=== PATIENT | male | born 1990 | race Caucasian/White ===

== ENCOUNTER 2017-08-29 14:56 | Emergency (ER) | payer SELFPAY ==
--- NOTE | 2017-08-29 14:58 | ER Report ---
History and Physical Time Seen By MD: 14:57 HPI/ROS CHIEF COMPLAINT: fever HISTORY OF PRESENT ILLNESS: Pt started on Wednesday with cough, sneezing, nausea and runny nose. Pt a few hours ago started with fever and abdominal pain in addition to the other symptoms. Pt states he has chills and can not get warm. PT just came back from [place] and is not sure if he was in contact with anyone sick. no diarrhea. PT denies any medical hx accept for a bruised r hand from a fall a week ago. REVIEW OF SYSTEMS: Constitutional: + fever, + chills. Eyes: No discharge. ENT: No sore throat. + sneezing, + runny nose Cardiovascular: No chest pain, no palpitations. Respiratory: + cough, + shortness of breath. Gastrointestinal: + abdominal pain, no vomiting. Genitourinary: No hematuria. Musculoskeletal: No back pain. Skin: No rashes. Neurological: No headache. Allergies: Coded Allergies: No Known Drug Allergies (Unverified , 08/29/17) Home Meds Active Scripts Oseltamivir Phosphate (TAMIFLU) 75 Mg Cap, 75 MG PO BID, #10 CAP Prov:BARBARA MCKEE V DO 08/29/17 Past Medical/Surgical History pmhx: bruised thumb/sprain hand Pshx: denies Reviewed Nurses Notes: Yes Hx Alcohol Use: Yes Constitutional Vital Sign - Last 24 Hours 08/29/17 08/29/17 08/29/17 08/29/17 14:59 15:00 15:05 15:15 Temp 100.0 Pulse 112 111 101 Resp 28 54 B/P (MAP) 123/104 143/122 (129) Pulse Ox 99 100 O2 Delivery Room Air 08/29/17 08/29/17 08/29/17 08/29/17 15:17 15:30 15:45 16:00 Pulse 104 110 Resp 35 24 10 B/P (MAP) 125/83 (97) 92/52 (65) 137/76 (96) 128/78 (95) Pulse Ox 100 99 95 Physical Exam General Appearance: The patient is alert, has no immediate need for airway protection and no signs of toxicity, + rigors Eyes: Pupils equal and round no pallor or injection, EOMI ENT: no pharyngeal erythema or exudates, Mucous membranes are moist, TM are nl b/l Respiratory: There are no retractions, + rhonchi b/l Cardiovascular: Regular rate and rhythm. pulses are equal and symmetrical, + tachy Gastrointestinal: Abdomen is soft with diffuse tenderness worse ruq, no masses , bowel sounds normal, no guarding, no rigidity or rebound Neurological: Cranial nerves II-XII grossly intact, no sensory or motor loss Skin: Warm and dry, no rashes. Musculoskeletal: Neck is supple non tender, no vertebral tenderness Extremities are nontender, non swollen and have full range of motion. DIFFERENTIAL DIAGNOSIS: After history and physical exam differential diagnosis was considered for influenza, pneumonia, bronchitis, uti viral illness Medical Decision Making Data Points Result Diagram: 08/29/17 1510 08/29/17 1510 Laboratory Hematology Test 08/29/17 15:00 08/29/17 15:10 08/29/17 15:26 Influenza Virus Type A (PCR) Negative (NEGATIVE) Influenza Virus Type B (PCR) Positive (NEGATIVE) Red Blood Count 5.51 M/uL (4.00-5.60) Mean Corpuscular Volume 83.6 fL (80.0-96.0) Mean Corpuscular Hemoglobin 29.0 pg (26.0-33.0) Mean Corpuscular Hemoglobin Concent 34.6 g/dL (32.0-36.0) Red Cell Distribution Width 13.2 % (11.5-14.5) Mean Platelet Volume 8.8 fL (7.2-11.1) Neutrophils (%) (Auto) 62.9 % (39.4-72.5) Lymphocytes (%) (Auto) 16.9 % (17.6-49.6) Monocytes (%) (Auto) 18.1 % (4.1-12.4) Eosinophils (%) (Auto) 0.8 % (0.4-6.7) Basophils (%) (Auto) 1.3 % (0.3-1.4) Nucleated RBC Relative Count (auto) 0.2 /100WBC Neutrophils # (Auto) 7.1 K/uL (2.0-7.4) Lymphocytes # (Auto) 1.9 K/uL (1.3-3.6) Monocytes # (Auto) 2.1 K/uL (0.3-1.0) Eosinophils # (Auto) 0.1 K/uL (0.0-0.5) Basophils # (Auto) 0.1 K/uL (0.0-0.1) Nucleated RBC Absolute Count (auto) 0.02 K/uL Sodium Level 139 mmol/L (137-145) Potassium Level 3.6 mmol/L (3.5-5.0) Chloride Level 100 mmol/L (98-107) Carbon Dioxide Level 25 mmol/L (22-30) Blood Urea Nitrogen 12 mg/dl (9-21) Creatinine 0.80 mg/dl (0.66-1.25) Glomerular Filtration Rate Calc > 60.0 Random Glucose 103 mg/dl (75-110) Calcium Level 9.3 mg/dl (8.4-10.2) Total Bilirubin 0.4 mg/dl (0.2-1.3) Aspartate Amino Transf (AST/SGOT) 28 U/L (0-35) Alanine Aminotransferase (ALT/SGPT) 47 U/L (0-56) Alkaline Phosphatase 72 U/L (0-126) Total Protein 8.2 gm/dl (6.3-8.2) Albumin 4.4 g/dl (3.5-5.0) Lipase 138 U/L (23-300) Urine Color Yellow Urine Clarity Clear Urine pH 8.0 pH (4.8-9.5) Urine Specific [place] 1.019 Urine Protein Negative mg/dL (NEGATIVE) Urine Glucose (UA) Negative mg/dL (NEGATIVE) Urine Ketones Trace mg/dL (NEGATIVE) Urine Blood Negative (NEGATIVE) Urine Nitrite Negative (NEGATIVE) Urine Bilirubin Negative (NEGATIVE) Urine Urobilinogen 2.0 mg/dL (0.2-1.9) Urine Leukocyte Esterase Negative (NEGATIVE) Urine RBC 1 /HPF (0-2/HPF) Urine WBC 1 /HPF (0-5/HPF) Urine Squamous Epithelial Cells None /LPF (</=FEW) Urine Bacteria Negative /HPF (NONE-FEW) Urine Mucus None /HPF (NONE-FEW) Chemistry Test 08/29/17 15:00 08/29/17 15:10 08/29/17 15:26 Influenza Virus Type A (PCR) Negative (NEGATIVE) Influenza Virus Type B (PCR) Positive (NEGATIVE) White Blood Count 11.3 k/uL (4.5-11.0) Red Blood Count 5.51 M/uL (4.00-5.60) Hemoglobin 15.9 g/dL (14.0-18.0) Hematocrit 46.0 % (42.0-52.0) Mean Corpuscular Volume 83.6 fL (80.0-96.0) Mean Corpuscular Hemoglobin 29.0 pg (26.0-33.0) Mean Corpuscular Hemoglobin Concent 34.6 g/dL (32.0-36.0) Red Cell Distribution Width 13.2 % (11.5-14.5) Platelet Count 229 K/uL (150-450) Mean Platelet Volume 8.8 fL (7.2-11.1) Neutrophils (%) (Auto) 62.9 % (39.4-72.5) Lymphocytes (%) (Auto) 16.9 % (17.6-49.6) Monocytes (%) (Auto) 18.1 % (4.1-12.4) Eosinophils (%) (Auto) 0.8 % (0.4-6.7) Basophils (%) (Auto) 1.3 % (0.3-1.4) Nucleated RBC Relative Count (auto) 0.2 /100WBC Neutrophils # (Auto) 7.1 K/uL (2.0-7.4) Lymphocytes # (Auto) 1.9 K/uL (1.3-3.6) Monocytes # (Auto) 2.1 K/uL (0.3-1.0) Eosinophils # (Auto) 0.1 K/uL (0.0-0.5) Basophils # (Auto) 0.1 K/uL (0.0-0.1) Nucleated RBC Absolute Count (auto) 0.02 K/uL Glomerular Filtration Rate Calc > 60.0 Calcium Level 9.3 mg/dl (8.4-10.2) Total Bilirubin 0.4 mg/dl (0.2-1.3) Aspartate Amino Transf (AST/SGOT) 28 U/L (0-35) Alanine Aminotransferase (ALT/SGPT) 47 U/L (0-56) Alkaline Phosphatase 72 U/L (0-126) Total Protein 8.2 gm/dl (6.3-8.2) Albumin 4.4 g/dl (3.5-5.0) Lipase 138 U/L (23-300) Urine Color Yellow Urine Clarity Clear Urine pH 8.0 pH (4.8-9.5) Urine Specific [place] 1.019 Urine Protein Negative mg/dL (NEGATIVE) Urine Glucose (UA) Negative mg/dL (NEGATIVE) Urine Ketones Trace mg/dL (NEGATIVE) Urine Blood Negative (NEGATIVE) Urine Nitrite Negative (NEGATIVE) Urine Bilirubin Negative (NEGATIVE) Urine Urobilinogen 2.0 mg/dL (0.2-1.9) Urine Leukocyte Esterase Negative (NEGATIVE) Urine RBC 1 /HPF (0-2/HPF) Urine WBC 1 /HPF (0-5/HPF) Urine Squamous Epithelial Cells None /LPF (</=FEW) Urine Bacteria Negative /HPF (NONE-FEW) Urine Mucus None /HPF (NONE-FEW) Urinalysis Test 08/29/17 15:26 Urine Color Yellow Urine Clarity Clear Urine pH 8.0 pH (4.8-9.5) Urine Specific [place] 1.019 Urine Protein Negative mg/dL (NEGATIVE) Urine Glucose (UA) Negative mg/dL (NEGATIVE) Urine Ketones Trace mg/dL (NEGATIVE) Urine Blood Negative (NEGATIVE) Urine Nitrite Negative (NEGATIVE) Urine Bilirubin Negative (NEGATIVE) Urine Urobilinogen 2.0 mg/dL (0.2-1.9) Urine Leukocyte Esterase Negative (NEGATIVE) Urine RBC 1 /HPF (0-2/HPF) Urine WBC 1 /HPF (0-5/HPF) Urine Squamous Epithelial Cells None /LPF (</=FEW) Urine Bacteria Negative /HPF (NONE-FEW) Urine Mucus None /HPF (NONE-FEW) EKG/Imaging Imaging napd ED Course/Re-evaluation Clinical Indication for ER IV: Hydration, IV Access ED Course check labs and give fluids. I suspect pt has influenza or a viral illness 08/29/2017 4:02:47 pm Pts influenza came back positive. Will give pt tamiflu. 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 Will write a script for tamiflu for next 5 days. I suggest pt rest and not be driving. States that he can take off of work with a note and stay in his truck since it is a sleeper cab. will give note. 08/29/2017 4:10:46 pm Pt states he is feeling better with the fluids and tylenol. will give his dose of tamiflu for tonight and a script to start tomorrow. will also give a dose of toradol to help his aches further. Decision to Disposition Date: Aug 29, 2017 Decision to Disposition Time: 16:08 Depart Departure Latest Vital Signs Vital Signs Date Time Temp Pulse Resp B/P (MAP) Pulse Ox O2 Delivery O2 Flow Rate FiO2 08/29/17 16:00 110 10 128/78 (95) 95 08/29/17 14:59 100.0 Room Air Impression: Primary Impression: Influenza B Condition: Condition Unchanged Disposition: HOME OR SELF-CARE New Scripts Oseltamivir Phosphate (TAMIFLU) 75 Mg Cap 75 MG PO BID, #10 CAP Prov: BARBARA MCKEE DO 08/29/17 Departure Forms: ER Transition Record, Medications Reconciliation, Off Work/ School Form, School or Work Release?: Work Number of days to be released: 3 Patient Portal Information Patient Instructions: Influenza (GEN) Additional Instructions: Your testing is positive for the influenza. Motrin (advil, ibuprofen) 600mg every 6 hours as needed for fever, bodyaches, chills Tylenol 650mg every 4 hours as needed for fever, bodyaches, chills Tamiflu one pill twice a day for 5 days to help shorten your influenza symptoms. Recommend fluids and rest. No working until 24 hours fever free BARBARA MCKEE DO Aug 29, 2017 14:58
[2017-08-29] MEDS ORDERED: NS(*) 0.9% 1000 ML BAG 1,000 ML IV ONE (15:03)
[2017-08-29] MEDS ORDERED: ACETAMINOPHEN 325 MG TAB PO ONE (15:05)
[2017-08-29] MEDS ORDERED: ACETAMINOPHEN 325 MG TAB ONE (15:22)
[2017-08-29 15:32] LABS: PLATELET COUNT, AUTOMATED 229 K/uL (150-450)
[2017-08-29] MEDS ORDERED: OSELTAMIVIR PHOS 75 MG CAP PO ONE (16:00)
[2017-08-29] MEDS ORDERED: KETOROLAC 30 MG/ML VIAL IVP ONE (16:05)
[2017-08-29] MEDS ORDERED: OSE75 PO (16:05)
[2017-08-29 16:14] VITALS: BP 130/81
--- NOTE | 2017-08-29 17:11 | RADIOLOGY IMAGING REPORT ---
FACILITY: [facility] PATIENT NAME: Addison Nathan : 1990 MR: [id number] V: [id number] EXAM DATE: ORDERING PHYSICIAN: BARBARA MCKEE TECHNOLOGIST: Location: [facility] - [place] Patient: Addison Nathan : 1990 Visit/Account:[id number] Date of Sevice: 08/29/2017 2 VIEWS CHEST INDICATION: Cough and fever. COMPARISON: None available FINDINGS: Cardiomediastinal silhouette and pulmonary vessels within normal limits. There is no focal infiltrate or lobar consolidation. There is no pneumothorax or pleural effusion. No nodule. Upper abdomen is unremarkable. No acute bony abnormality. IMPRESSION: 1. No acute cardiopulmonary process. Report Dictated By: Hernando Marino at 08/29/2017 3:49 PM Report E-Signed By: Hernando Marino at 08/29/2017 3:50 PM WSN:[id number]
== END 2017-08-29 17:00 | disposition home or self-care (01) ==
LOC: ER 15:05
DX: J11.1 Influenza due to unidentified influenza virus with other respiratory manifestations (principal)
CPT/HCPCS: 36415; 71046; 81001; 83690; 85025; 87040; 87502; 96361; 96374; 99284; J1885; J7030; 82040; 82247; 82310; 82374; 82435; 82565; 82947; 84075; 84132; 84155; 84295; 84450; 84460; 84520

== ENCOUNTER → 2017-08-29 | Outpatient (CLI) | payer SELFPAY ==
[~2017-08-29] MED LIST: OSE75 PO
== END ==
LOC: AMB 14:32
PROVIDERS: ATTEND Nurse Practitioner
DX: R10.84 Generalized abdominal pain (principal); R11.0 Nausea; R53.83 Other fatigue; R00.0 Tachycardia, unspecified; R05 Cough; J02.9 Acute pharyngitis, unspecified
CPT/HCPCS: A0425; A0427